=== PATIENT | male | born 1960 | race African-American/Black ===

== ENCOUNTER 2020-02-17 08:42 | Inpatient (IN) | payer OTHER ==
--- NOTE | 2020-02-17 10:19 | BHS.RME ---
Substance Use & Tx History - Substance Use History Alcohol Substance amount: 3pints of vodka Frequency of use: Daily Substance route: Oral Date of Last Use: 02/17/20 - Last Treatment Date of last treatment: 01/23 [facility] Where was last treatment: Detox Physical/Psych/Mental Status - Behavior Eye Contact: Normal - Cooperativeness Cooperativeness: Cooperative - Thinking Thought Processes: Logical - Physical Health Problems Is patient presently having any pain?: No Does patient presently have any injuries (include location): No Does patient currently have a fever: No CIWA Nausea/Vomitin-Mild Nausea/No Vomiting Muscle Tremors: 3 Anxiety: 3 Agitation: 2 Paroxysmal Sweats: 1-Minimal Palms Moist Orientation: 0-Oriented Tacttile Disturbances: 1-Very Mild Itch/Numbness Auditory Disturbances: 0-None Visual Disturbances: 0-None Headache: 2-Mild CIWA-Ar Total Score: 13
--- NOTE | 2020-02-17 10:36 | HP ---
CIWA Score Nausea/Vomitin-Mild Nausea/No Vomiting Muscle Tremors: 3 Anxiety: 3 Agitation: 2 Paroxysmal Sweats: 1-Minimal Palms Moist Orientation: 0-Oriented Tacttile Disturbances: 1-Very Mild Itch/Numbness Auditory Disturbances: 0-None Visual Disturbances: 0-None Headache: 2-Mild CIWA-Ar Total Score: 13 - Admission Criteria OASAS Guidelines: Admission for Medically Managed Detox: Requires at least one of the followin. CIWA greater than 12 2. Seizures within the past 24 hours 3. Delirium tremens within the past 24 hours 4. Hallucinations within the past 24 hours 5. Acute intervention needed for co occurring medical disorder 6. Acute intervention needed for co occurring psychiatric disorder 7. Severe withdrawal that cannot be handled at a lower level of care (continued vomiting, continued diarrhea, abnormal vital signs) requiring intravenous medication and/or fluids 8. Admitting History and Physical - Admission Chief Complaint: i need help to sto drinking alcohol History of Present Illness: this 59 years old male with alcohol dependence,seeking detox,first time to this facility History Source: Patient Limitations to Obtaining History: No Limitations - Past Medical History Cardiovascular: Yes: HTN Psych: Yes: Anxiety, Depression, Other (insomnia) - Smoking History Smoking history: Current every day smoker Have you smoked in the past 12 months: Yes Aproximately how many cigarettes per day: 20 - Alcohol/Substance Use Hx Alcohol Use: Yes Date of Last Use: 02/16/20 - Social History Usual Living Arrangement: Yes: Other (homeless) Do you think of yourself as: Straight/Heterosexual ADL: Support Services Occupation: unemployed History of Recent Travel: No Other Social History: homeless,unemployed,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,positive eye beverage sales consultant Admission ROS [facility] - HPI Chief Complaint: i need help to stop drinking alcohol Allergies/Adverse Reactions: Allergies Allergy/AdvReac Type Severity Reaction Status Date / Time bee venom protein (honey bee) Allergy Verified 02/17/20 10:36 NSAIDS (Non-Steroidal Allergy Verified 02/17/20 10:43 Anti-Inflamma History of Present Illness: this 59 years old male with alcohol dependence seeking detox,withdrawal symptom, first time to this facility last detox 01/2020 not sure did not recal the facility history of hth,no med unemployed,nicotine dependence,postive eye beverage sales consultant,no legal issue no significant period of sobriety anxiety,depression,insomnia like to go to rehab after detox Exam Limitations: No Limitations - Ebola screening Have you traveled outside of the country in the last 21 days: No Have you had contact with anyone from an Ebola affected area: No Have you been sick,other than usual withdrawal symptoms: No - Review of Systems Constitutional: Loss of Appetite, Malaise, Night Sweats, Changes in sleep EENT: reports: Nose Congestion Respiratory: reports: No Symptoms reported Cardiac: reports: No Symptoms Reported GI: reports: Nausea, Poor Appetite, Abdominal cramping : reports: No Symptoms Reported Musculoskeletal: reports: Muscle Pain Integumentary: reports: Dryness Neuro: reports: Tremors Endocrine: reports: No Symptoms Reported Hematology: reports: No Symptoms Reported Psychiatric: reports: No Sypmtoms Reported, Judgement Intact, Mood/Affect Appropiate, Orientated x3, Anxious Other Systems: Reviewed and Negative Patient History - Patient Medical History Hx Anemia: No Hx Asthma: No Hx Chronic Obstructive Pulmonary Disease (COPD): No Hx Cancer: No Hx Cardiac Disorders: No Hx Congestive Heart Failure: No Hx Hypertension: No Hx Hypercholesterolemia: No Hx Pacemaker: No HX Cerebrovascular Accident: No Hx Seizures: No Hx Dementia: No Hx Diabetes: No Hx Gastrointestinal Disorders: No Hx Liver Disease: No Hx Genitourinary Disorders: No Hx Sexually Transmitted Disorders: No Hx Renal Disease (ESRD): No Hx Thyroid Disease: No Hx Human Immunodeficiency Virus (HIV): No (12/23 negative) Hx Hepatitis C: No Hx Depression: Yes Hx Suicide Attempt: No Hx Bipolar Disorder: No Hx Schizophrenia: No Other Medical History: no suicidal,no homicidal,insomnia - Patient Surgical History Past Surgical History: No - PPD History Previous Implant?: Yes Documented Results: Negative w/o proof Implanted On Prior [facility] Admission?: No PPD to be Administered?: Yes - Smoking Cessation Smoking history: Current every day smoker Have you smoked in the past 12 months: Yes Aproximately how many cigarettes per day: 20 Hx Chewing Tobacco Use: No Initiated information on smoking cessation: Yes 'Breaking Loose' booklet given: 02/17/20 - Substance & Tx. History Hx Alcohol Use: Yes Hx Substance Use: Yes Substance Use Type: Alcohol, Cocaine, Marijuana Hx Substance Use Treatment: Yes (did not recall may be last months 01/23) - Substances abused Alcohol Substance route: Oral Frequency: Daily Amount used: 3 pints of vodka Age of first use: 15 Date of last use: 02/17/20 Crack Substance route: Smoking Frequency: 1-2 times per week Amount used: 400$ Age of first use: 30 Date of last use: 02/10/20 Marijuana/Hashish Substance route: Smoking Frequency: 1-3 times last 30 days Amount used: 5$ Age of first use: 15 Date of last use: 02/16/20 Admission Physical Exam [facility] - Vital Signs Vital Signs: bp 129/90,p90,r18,t97.5,edilma 0.016,pulse ox 98% - Physical General Appearance: Yes: Moderate Distress, Tremorous, Irritable, Sweating HEENTM: Yes: Normal ENT Inspection, ELISA, Pharynx Normal Respiratory: Yes: Lungs Clear, Normal Breath Sounds, No Respiratory Distress Neck: Yes: Within Normal Limits, Supple, Trachea in good position Breast: Yes: Within Normal Limits Cardiology: Yes: Within Normal Limits, Regular Rhythm, Regular Rate, S1, S2 Abdominal: Yes: Within Normal Limits, Normal Bowel Sounds, Non Tender, Flat, Soft Genitourinary: Yes: Within Normal Limits Back: Yes: Muscle Spasm Musculoskeletal: Yes: Back pain, Muscle Pain Extremities: Yes: Within Normal Limits, Normal Range of Motion, Tremors Neurological: Yes: bus aide II-XII NML intact, Fully Oriented, Alert, Motor Strength 5/5 Integumentary: Yes: Dry Lymphatic: Yes: Within Normal Limits - Diagnostic (1) Alcohol dependence with uncomplicated withdrawal Current Visit: Yes Status: Acute (2) Cocaine abuse Current Visit: Yes Status: Acute (3) Cannabis abuse Current Visit: Yes Status: Acute (4) Hypertension Current Visit: Yes Status: Acute (5) Insomnia secondary to depression with anxiety Current Visit: Yes Status: Acute Cleared for Admission [facility] - Detox or Rehab [facility] Level of Care: Medically Managed Detox Regimen/Protocol: Librium Inpatient Rehab Admission - Rehab Decision to Admit Inpatient rehab admission?: No
[2020-02-17] MEDS ORDERED: MAGNESIUM CITRATE 300 ML BOTTLE PO PRN (10:53)
[2020-02-17] MEDS ORDERED: chlordiazePOXIDE HCL 25 MG CAPSULE PO PRN (10:53)
[2020-02-17] MEDS ORDERED: MAG HYDROX/AL HYDROX/SIMETH 30 ML UNIT-DOSE CUP PO PRN (10:53)
[2020-02-17] MEDS ORDERED: BISMUTH SUBSALICYLATE 524 MG/30 ML UD PO PRN (10:53)
[2020-02-17] MEDS ORDERED: MAGNESIUM HYDROX 2400MG/30ML ORAL SUSPENSION 30 ML CUP PO PRN (10:53)
[2020-02-17] MEDS ORDERED: ONDANSETRON *ODT* 4 MG TABLET SL PRN (10:53)
[2020-02-17] MEDS ORDERED: MENTHOL/PHENOL 1 EACH UD MM PRN (10:53)
[2020-02-17] MEDS ORDERED: ACETAMINOPHEN 325 MG TABLET (FP) PO PRN ×2 (10:53)
[2020-02-17] MEDS ORDERED: NICOTINE POLACRILEX 2 MG GUM BUC PRN (10:53)
[2020-02-17] MEDS ORDERED: METHOCARBAMOL 500 MG TABLET PO PRN (10:53)
[2020-02-17] MEDS ORDERED: IBUPROFEN 400 MG TABLET (FP) PO PRN (10:53)
[2020-02-17 11:00] VITALS: BMI 38.5
[2020-02-17] MEDS: NICOTINE 21 MG/24 HOURS TOPICAL PATCH TD SCH (12:14)
--- NOTE | 2020-02-17 13:12 | PN ---
BHS Progress Note Note: Psychiatric nurse practitioner note: Patient sleeping. Breathing and snoring heavily. Psychiatric consultation deferred.
[2020-02-17] MEDS: hydrOXYzine PAMOATE 25 MG CAPSULE (FP) PO SCH ×3 (13:48→22:35)
[2020-02-17] MEDS: chlordiazePOXIDE HCL 25 MG CAPSULE PO SCH ×2 (18:25→22:33)
[2020-02-17] MEDS: THIAMINE HCL 100 MG TABLET (FP) PO SCH (22:33)
[2020-02-17] MEDS: MELATONIN 5 MG TABLETS PO SCH (22:34)
[2020-02-18] MEDS: chlordiazePOXIDE HCL 25 MG CAPSULE PO SCH ×4 (06:43→22:12)
[2020-02-18] MEDS: hydrOXYzine PAMOATE 25 MG CAPSULE (FP) PO SCH ×2 (06:44→10:26)
[2020-02-18] MEDS: PRENATAL VITAMINS W/ FOLIC ACID TABLET (FP) PO SCH (10:26)
[2020-02-18] MEDS: NICOTINE 21 MG/24 HOURS TOPICAL PATCH TD SCH (10:28)
--- NOTE | 2020-02-18 10:30 | CONSULT ---
[facility] Psychiatric Consult - Data Date of interview: 02/18/20 Identifying data: Mr Do is a 59 years old Black male, unemployed, homeless seeking detox treatment for alcohol, cocaine and cannabis Substance Abuse History: Reports history of alcohol, crack cocaine and marijuana use. Refer to addiction counselor's summary for further information Medical History: Significant for hypertension. Smokes cigarettes 1 ppd Psychiatric History: Patient could not be seen because he was in bed sleeping. Psychiatric Findings - Initial Treatment Plan Initial Treatment Plan: Please reconsult when patient is appropriate for psychiatric interview
--- NOTE | 2020-02-18 10:38 | PN ---
S CIWA - CIWA Score Nausea/Vomitin Muscle Tremors: 2 Anxiety: 2 Agitation: 2 Paroxysmal Sweats: 1-Minimal Palms Moist Orientation: 0-Oriented Tacttile Disturbances: 1-Very Mild Itch/Numbness Auditory Disturbances: 0-None Visual Disturbances: 0-None Headache: 2-Mild CIWA-Ar Total Score: 12 BHS Progress Note (SOAP) Subjective: alert,irritable,interrupted sleep,tremor,aching pain in the body and back Objective: 02/18/20 17:05 Vital Signs Temperature 98.9 F 02/18/20 12:40 Pulse Rate 81 02/18/20 12:40 Respiratory Rate 19 02/18/20 12:40 Blood Pressure 139/91 02/18/20 12:40 O2 Sat by Pulse Oximetry (%) 98 02/18/20 12:40 Laboratory Last Values WBC 3.1 K/mm3 (4.0-10.0) L 02/18/20 07:40 RBC 4.09 M/mm3 (4.00-5.60) 02/18/20 07:40 Hgb 11.0 GM/dL (11.7-16.9) L 02/18/20 07:40 Hct 34.6 % (35.4-49) L 02/18/20 07:40 MCV 84.6 fl (80-96) 02/18/20 07:40 MCH 26.9 pg (25.7-33.7) 02/18/20 07:40 MCHC 31.8 g/dl (32.0-35.9) L 02/18/20 07:40 RDW 18.9 % (11.9-15.9) H 02/18/20 07:40 Plt Count 76 K/MM3 (134-434) L 02/18/20 07:40 MPV 9.4 fl (7.5-11.1) 02/18/20 07:40 Sodium 138 mmol/L (136-145) 02/18/20 07:40 Potassium 3.5 mmol/L (3.5-5.1) 02/18/20 07:40 Chloride 102 mmol/L (98-107) 02/18/20 07:40 Carbon Dioxide 30 mmol/L (21-32) 02/18/20 07:40 Anion Gap 6 MMOL/L (8-16) L 02/18/20 07:40 BUN 6.8 mg/dL (7-18) L 02/18/20 07:40 Creatinine 0.8 mg/dL (0.55-1.3) 02/18/20 07:40 Est GFR (CKD-EPI)AfAm 113.33 02/18/20 07:40 Est GFR (CKD-EPI)NonAf 97.78 02/18/20 07:40 Random Glucose 94 mg/dL (74-106) 02/18/20 07:40 Calcium 8.4 mg/dL (8.5-10.1) L 02/18/20 07:40 Total Bilirubin 1.2 mg/dL (0.2-1) H 02/18/20 07:40 AST 136 U/L (15-37) H 02/18/20 07:40 ALT 69 U/L (13-61) H 02/18/20 07:40 Alkaline Phosphatase 203 U/L (45-117) H 02/18/20 07:40 Total Protein 7.3 g/dl (6.4-8.2) 02/18/20 07:40 Albumin 3.0 g/dl (3.4-5.0) L 02/18/20 07:40 Syphilis Serology Non-reactive (NONREACTIVE) 02/18/20 07:40 COVID-19 ([facility]) Not detected (Not Detected) 02/17/20 11:15 Assessment: 02/18/20 17:06 withdrawal symptom Plan: continue detox librium regimen,,pancytopenia and elevation of liver enzymes probably due to chroin alcoholism,will repeat cbc,cmp,inr in am
[2020-02-18 10:56] LABS: HEMATOCRIT 34.6 % (35.4-49); MCH 26.9 pg (25.7-33.7); MCHC 31.8 g/dl (32.0-35.9); MEAN CELL VOLUME 84.6 fl (80-96); MEAN PLT VOLUME 9.4 fl (7.5-11.1); PLATELET COUNT 76 K/MM3 (134-434); RBC 4.09 M/mm3 (4.00-5.60); RDW 18.9 % (11.9-15.9); WHITE BLOOD COUNT 3.1 K/mm3 (4.0-10.0)
[2020-02-18] MEDS ORDERED: hydrOXYzine PAMOATE 25 MG CAPSULE (FP) PO PRN (11:03)
[2020-02-18 11:15] LABS: BLOOD UREA NITROGEN 6.8 mg/dL (7-18); CALCIUM 8.4 mg/dL (8.5-10.1); POTASSIUM 3.5 mmol/L (3.5-5.1)
[2020-02-18 11:20] LABS: BILIRUBIN,TOTAL 1.2 mg/dL (0.2-1); CREATININE 0.8 mg/dL (0.55-1.3); TOT PROT 7.3 g/dl (6.4-8.2)
--- NOTE | 2020-02-18 11:44 | EKG ---
Test Reason : Blood Pressure : / mmHG Vent. Rate : 074 BPM Atrial Rate : 074 BPM P-R Int : 178 ms QRS Dur : 094 ms QT Int : 396 ms P-R-T Axes : -02 033 027 degrees QTc Int : 439 ms NORMAL SINUS RHYTHM NORMAL ECG NO PREVIOUS ECGS AVAILABLE Confirmed by LINDY BEDOYA MD ([id number]) on 02/18/2020 11:43:25 AM Referred By: Confirmed By:LINDY BEDOYA MD
[2020-02-18] MEDS: THIAMINE HCL 100 MG TABLET (FP) PO SCH (22:12)
[2020-02-18] MEDS: MELATONIN 5 MG TABLETS PO SCH (22:13)
[2020-02-19] MEDS: chlordiazePOXIDE HCL 25 MG CAPSULE PO SCH ×4 (05:34→22:49)
--- NOTE | 2020-02-19 09:40 | PN ---
[facility] CIWA - CIWA Score Nausea/Vomitin-No Nausea/No Vomiting Muscle Tremors: 2 Anxiety: 2 Agitation: 2 Paroxysmal Sweats: No Perspiration Orientation: 0-Oriented Tacttile Disturbances: 0-None Auditory Disturbances: 0-None Visual Disturbances: 0-None Headache: 1-Very Mild CIWA-Ar Total Score: 7 S Progress Note (SOAP) Subjective: alert,irritable,anxious,interrupted sleep,aching pain,headache Objective: 02/19/20 16:13 Vital Signs Temperature 98.7 F 02/19/20 12:49 Pulse Rate 76 02/19/20 12:49 Respiratory Rate 18 02/19/20 12:49 Blood Pressure 134/55 L 02/19/20 12:49 O2 Sat by Pulse Oximetry (%) 99 02/19/20 12:49 02/19/20 16:14 Laboratory Last Values WBC 3.7 K/mm3 (4.0-10.0) L 02/19/20 08:00 RBC 4.29 M/mm3 (4.00-5.60) 02/19/20 08:00 Hgb 11.5 GM/dL (11.7-16.9) L 02/19/20 08:00 Hct 36.2 % (35.4-49) 02/19/20 08:00 MCV 84.6 fl (80-96) 02/19/20 08:00 MCH 26.8 pg (25.7-33.7) 02/19/20 08:00 MCHC 31.7 g/dl (32.0-35.9) L 02/19/20 08:00 RDW 18.7 % (11.9-15.9) H 02/19/20 08:00 Plt Count 83 K/MM3 (134-434) L 02/19/20 08:00 MPV 9.6 fl (7.5-11.1) 02/19/20 08:00 PT with INR 17.10 SEC (9.7-13.0) H 02/19/20 08:00 INR 1.44 (0.83-1.09) H 02/19/20 08:00 Sodium 140 mmol/L (136-145) 02/19/20 08:00 Potassium 3.7 mmol/L (3.5-5.1) 02/19/20 08:00 Chloride 105 mmol/L (98-107) 02/19/20 08:00 Carbon Dioxide 31 mmol/L (21-32) 02/19/20 08:00 Anion Gap 4 MMOL/L (8-16) L 02/19/20 08:00 BUN 9.2 mg/dL (7-18) 02/19/20 08:00 Creatinine 0.8 mg/dL (0.55-1.3) 02/19/20 08:00 Est GFR (CKD-EPI)AfAm 113.33 02/19/20 08:00 Est GFR (CKD-EPI)NonAf 97.78 02/19/20 08:00 Random Glucose 96 mg/dL (74-106) 02/19/20 08:00 Calcium 8.4 mg/dL (8.5-10.1) L 02/19/20 08:00 Total Bilirubin 1.3 mg/dL (0.2-1) H 02/19/20 08:00 AST 102 U/L (15-37) H 02/19/20 08:00 ALT 61 U/L (13-61) 02/19/20 08:00 Alkaline Phosphatase 202 U/L (45-117) H 02/19/20 08:00 Total Protein 7.2 g/dl (6.4-8.2) 02/19/20 08:00 Albumin 3.0 g/dl (3.4-5.0) L 02/19/20 08:00 Syphilis Serology Non-reactive (NONREACTIVE) 02/18/20 07:40 COVID-19 ([facility]) Not detected (Not Detected) 02/17/20 11:15 Assessment: 02/19/20 16:14 withdrawal symptom Plan: continue detox librium regimen,elevation of liver enzymes and leukopenia probably due to chronic alcoholism,advise fluid,abstinence from alcohol,follow up with medical provider after discharge
[2020-02-19 10:30] LABS: INR 1.44 (0.83-1.09); PROTHROMBIN TIME (PATIENT) 17.1 SEC (9.7-13.0)
[2020-02-19 10:32] LABS: BILIRUBIN,TOTAL 1.3 mg/dL (0.2-1); BLOOD UREA NITROGEN 9.2 mg/dL (7-18); CALCIUM 8.4 mg/dL (8.5-10.1); CREATININE 0.8 mg/dL (0.55-1.3); POTASSIUM 3.7 mmol/L (3.5-5.1); TOT PROT 7.2 g/dl (6.4-8.2)
[2020-02-19 10:37] LABS: HEMATOCRIT 36.2 % (35.4-49); HEMOGLOBIN 11.5 GM/dL (11.7-16.9); MCH 26.8 pg (25.7-33.7); MCHC 31.7 g/dl (32.0-35.9); MEAN CELL VOLUME 84.6 fl (80-96); MEAN PLT VOLUME 9.6 fl (7.5-11.1); PLATELET COUNT 83 K/MM3 (134-434); RBC 4.29 M/mm3 (4.00-5.60); RDW 18.7 % (11.9-15.9); WHITE BLOOD COUNT 3.7 K/mm3 (4.0-10.0)
[2020-02-19] MEDS: PRENATAL VITAMINS W/ FOLIC ACID TABLET (FP) PO SCH (10:55)
[2020-02-19] MEDS: NICOTINE 21 MG/24 HOURS TOPICAL PATCH TD SCH (10:55)
[2020-02-19] MEDS: THIAMINE HCL 100 MG TABLET (FP) PO SCH (22:49)
[2020-02-19] MEDS: MELATONIN 5 MG TABLETS PO SCH (22:56)
[2020-02-20] MEDS ORDERED: chlordiazePOXIDE HCL 10 MG CAPSULE PO PRN
[2020-02-20] MEDS ORDERED: chlordiazePOXIDE 5 MG CAPSULE ONE ×2 (05:11→06:54)
[2020-02-20] MEDS: chlordiazePOXIDE HCL 10 MG CAPSULE PO SCH ×5 (07:05→22:39)
--- NOTE | 2020-02-20 10:00 | PN ---
S CIWA - CIWA Score Nausea/Vomitin-Mild Nausea/No Vomiting Muscle Tremors: 2 Anxiety: 2 Agitation: 2 Paroxysmal Sweats: No Perspiration Orientation: 0-Oriented Tacttile Disturbances: 0-None Auditory Disturbances: 0-None Visual Disturbances: 0-None Headache: 1-Very Mild CIWA-Ar Total Score: 8 B[facility] Progress Note (SOAP) Subjective: alert,aching pain,most of the time sleeping Objective: 02/20/20 14:30 Vital Signs Temperature 98.6 F 02/20/20 09:13 Pulse Rate 70 02/20/20 09:13 Respiratory Rate 02/20/20 09:13 Blood Pressure 138/88 02/20/20 09:13 O2 Sat by Pulse Oximetry (%) 96 02/20/20 09:13 Assessment: 02/20/20 14:31 withdrawal symptom Plan: continue detox librium regimen
[2020-02-20] MEDS: NICOTINE 21 MG/24 HOURS TOPICAL PATCH TD SCH (12:10)
[2020-02-20] MEDS: PRENATAL VITAMINS W/ FOLIC ACID TABLET (FP) PO SCH (12:11)
[2020-02-20] MEDS: THIAMINE HCL 100 MG TABLET (FP) PO SCH (22:39)
[2020-02-20] MEDS: MELATONIN 5 MG TABLETS PO SCH (22:39)
[2020-02-21] MEDS ORDERED: chlordiazePOXIDE HCL 10 MG CAPSULE PO SCH (05:00)
--- NOTE | 2020-02-21 10:45 | PN ---
S CIWA - CIWA Score Nausea/Vomitin-No Nausea/No Vomiting Muscle Tremors: 2 Anxiety: 0-No Anxiety, at Ease Agitation: 1-Slight > Activity Paroxysmal Sweats: 1-Minimal Palms Moist Orientation: 0-Oriented Tacttile Disturbances: 0-None Auditory Disturbances: 0-None Visual Disturbances: 0-None Headache: 0-None Present CIWA-Ar Total Score: 4 B[facility] Progress Note (SOAP) Subjective: I need to see psych Objective: 02/21/20 10:43 Vital Signs Temperature 98.2 F 02/21/20 08:26 Pulse Rate 90 02/21/20 08:26 Respiratory Rate 18 02/21/20 08:26 Blood Pressure 136/77 02/21/20 08:26 O2 Sat by Pulse Oximetry (%) 98 02/21/20 05:24 Laboratory Tests 02/17/20 02/18/20 02/18/20 11:15 07:40 07:40 WBC 3.1 L RBC 4.09 Hgb 11.0 L Hct 34.6 L MCV 84.6 MCH 26.9 MCHC 31.8 L RDW 18.9 H Plt Count 76 L MPV 9.4 PT with INR INR Sodium Potassium Chloride Carbon Dioxide Anion Gap BUN Creatinine Est GFR (CKD-EPI)AfAm Est GFR (CKD-EPI)NonAf Random Glucose Calcium Total Bilirubin AST ALT Alkaline Phosphatase Total Protein Albumin Syphilis Serology Non-reactive COVID-19 ([facility]) Not detected 02/18/20 02/19/20 02/19/20 07:40 08:00 08:00 WBC 3.7 L RBC 4.29 Hgb 11.5 L Hct 36.2 MCV 84.6 MCH 26.8 MCHC 31.7 L RDW 18.7 H Plt Count 83 L MPV 9.6 PT with INR INR Sodium 138 140 Potassium 3.5 3.7 Chloride 102 105 Carbon Dioxide 30 31 Anion Gap 6 L 4 L BUN 6.8 L 9.2 Creatinine 0.8 0.8 Est GFR (CKD-EPI)AfAm 113.33 113.33 Est GFR (CKD-EPI)NonAf 97.78 97.78 Random Glucose 94 96 Calcium 8.4 L 8.4 L Total Bilirubin 1.2 H 1.3 H AST 136 H 102 H ALT 69 H 61 Alkaline Phosphatase 203 H 202 H Total Protein 7.3 7.2 Albumin 3.0 L 3.0 L Syphilis Serology COVID-19 ([facility]) 02/19/20 08:00 WBC RBC Hgb Hct MCV MCH MCHC RDW Plt Count MPV PT with INR 17.10 H INR 1.44 H Sodium Potassium Chloride Carbon Dioxide Anion Gap BUN Creatinine Est GFR (CKD-EPI)AfAm Est GFR (CKD-EPI)NonAf Random Glucose Calcium Total Bilirubin AST ALT Alkaline Phosphatase Total Protein Albumin Syphilis Serology COVID-19 ([facility]) aaox3 ambulating no acute distress Assessment: 02/21/20 10:43 withdrawals Plan: continue detox increase fluids psych ordered for re-visit d/c tomorrow
[2020-02-21] MEDS: NICOTINE 21 MG/24 HOURS TOPICAL PATCH TD SCH (11:04)
[2020-02-21] MEDS: PRENATAL VITAMINS W/ FOLIC ACID TABLET (FP) PO SCH (11:05)
[2020-02-21 14:25] VITALS: BP 141/86; PULSE 87; TEMP 97.8
[2020-02-22] MEDS ORDERED: chlordiazePOXIDE HCL 10 MG CAPSULE PO ONE (05:00)
== END 2020-02-21 14:29 | disposition other institution (70) | DRG 774 ==
LOC: YASAS 08:42 → Y6N 10:53
PROVIDERS: ADMIT Allergy & Immunology; ATTEND Allergy & Immunology
PROC: HZ2ZZZZ Detoxification Services for Substance Abuse Treatment (ICD-10-PCS; principal; 2020-02-17)
DX: F10.230 Alcohol dependence with withdrawal, uncomplicated (principal); F14.10 Cocaine abuse, uncomplicated; F12.10 Cannabis abuse, uncomplicated; F17.210 Nicotine dependence, cigarettes, uncomplicated; F51.05 Insomnia due to other mental disorder; D61.818 Other pancytopenia; D72.819 Decreased white blood cell count, unspecified; F41.9 Anxiety disorder, unspecified; F32.9 Major depressive disorder, single episode, unspecified; I10 Essential (primary) hypertension; G47.00 Insomnia, unspecified; R74.0 Nonspecific elevation of levels of transaminase and lactic acid dehydrogenase [LDH]; Z56.0 Unemployment, unspecified; Z59.0 Homelessness; Z88.6 Allergy status to analgesic agent; Z91.030 Bee allergy status
CPT/HCPCS: 36415; 80053; 85027; 85610; 86780; 93005; 93010; U0003